=== PATIENT | male | born 1970 | race Caucasian/White ===

== ENCOUNTER 2017-07-27 08:23 | Day surgery (SDC) | payer OTHER, SELFPAY ==
[2017-07-27 08:47] VITALS: BP 152/85; PULSE 78; RESP 14; TEMP 35.5; O2SAT 98; BMI 31.1
[2017-07-27 10:20] VITALS: BP 111/72; BP 112/72; BP 152/85; PULSE 72; PULSE 75; RESP 16; RESP 18; TEMP 36.6; O2SAT 90; O2SAT 94
[2017-07-27 10:25] VITALS: BP 105/65; BP 152/85; PULSE 69; RESP 16; O2SAT 94
[2017-07-27 10:30] VITALS: BP 120/75; BP 152/85; PULSE 66; RESP 16; O2SAT 92
[2017-07-27 10:35] VITALS: BP 128/85; BP 152/85; PULSE 69; RESP 16; TEMP 37.1; O2SAT 97
[2017-07-27 10:52] VITALS: BP 152/85
--- NOTE | 2017-07-28 07:57 | PCM.OPRPT ---
Problem List (1) Blood in stool Status: Acute Report of Operation Date of Procedure: 07/27/17 Pre-Operative Diagnosis: Rectal bleeding Post-Operative Diagnosis: Normal colonoscopy Surgery/Procedure Performed:: Colonoscopy Specimen's removed: None Description of Procedure: The major risks and benefits associated with the procedure were explained to the patient in detail. The patient verbalized understanding and agreement with the same. The patient was brought to the endoscopy suite. After adequate sedation was achieved, the patient was placed in the left lateral decubitus position and a digital rectal exam was performed. This examination was within normal limits. A well-lubricated colonoscope was then inserted into the rectum and advanced under direct visualization to the level of the cecum. The bowel prep was good. The cecum was identified by both visual and anatomic landmarks. A photograph was taken of the end of the cecum. The scope was then fully withdrawn while examining the color, texture, anatomy and integrity of the mucosa from the cecum to the anal canal. The findings were consistent with normal colonic mucosa. Over 6 minutes were taken to examine the colonic mucosa. Upon reaching the rectum the scope was retroflexed to examine the distal rectal vault. The scope was then straightened and was completely retrieved upon exiting the anal canal and the procedure was terminated. The patient was then transferred to the recovery room in stable condition. Recommendations for follow up: 10 years
== END 2017-07-27 10:54 | disposition home or self-care (01) ==
LOC: EN 08:26 → AC 08:35
PROVIDERS: Family Provider Family Medicine; PCP Family Medicine; Visit Provider Surgery
PROC: 0DJD8ZZ Inspection of Lower Intestinal Tract, Via Natural or Artificial Opening Endoscopic (ICD-10-PCS; CPT 45378; principal; 2017-07-27 09:25)
DX: K92.1 Melena (principal); F32.9 Major depressive disorder, single episode, unspecified
CPT/HCPCS: 45378; J7120

== ENCOUNTER 2017-10-28 15:45 | Emergency (ER) | payer OTHER, SELFPAY ==
[2017-10-28 15:46] VITALS: BP 161/96; PULSE 87; RESP 14; TEMP 36.7; O2SAT 97; BMI 30.7
--- NOTE | 2017-10-28 16:01 | RAD_ITS ---
STUDY: X-RAY - RIGHT HAND REASON FOR EXAM: Male, 47 years old. Puncture wound TECHNIQUE: Three view(s) of the hand were obtained. COMPARISON: None. FINDINGS: Bones: There are no acute osseous abnormalities. Joints: The visualized joints are unremarkable. Soft tissues: The soft tissues are unremarkable. Foreign body: The radiopaque foreign body is present dorsally and shows minimal contact with the edge of the head of the third metacarpal. RAD/Hand Min 3 Views IMPRESSION: The carline likely contacts the edge of the head of the third metacarpal. Electronically Signed: Sabrina Senior MD at 16:47 EDT Tel Direct: [phone], Service support ,
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
[2017-10-28] MEDS: Diphth,Pertuss(Acell),Tet Vac 0.5 ML Vial IM (16:22)
[2017-10-28] MEDS: Cephalexin 250 MG Capsule 500 MG PO (16:22)
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
--- NOTE | 2017-10-28 16:22 | ED.DEP ---
ED Disposition - Plan for ED Patient: Chief Complaint: Foreign Body Instructions: ED Foreign Body Soft Tissue Removed Prescriptions: Cephalexin [Keflex] 500 mg PO Q6 #40 cap Referrals: Rosa M Saldana MD [Primary Care Provider] - [facility] - 3-5 Days
[2017-10-28 16:32] VITALS: PULSE 76
--- NOTE | 2017-10-28 16:33 | NURSING ---
WOUND WASHED WITH SOAP AND WATER. BACITRACIN AND BANDAID APPLIED. PT D/C TO [facility] FOR TESTING.
== END 2017-10-28 16:34 | disposition home or self-care (01) ==
LOC: ED 16:27
PROVIDERS: Emergency Provider Emergency Medicine; Family Provider Family Medicine; PCP Family Medicine
DX: S61.441A Puncture wound with foreign body of right hand, initial encounter (principal); W20.8XXA Other cause of strike by thrown, projected or falling object, initial encounter; Y93.89 Activity, other specified; Y92.9 Unspecified place or not applicable; Y99.0 Civilian activity done for income or pay
CPT/HCPCS: 73130; 90715; 99283

== ENCOUNTER → 2022-07-06 | Outpatient (CLI) | payer OTHER, SELFPAY ==
--- NOTE | 2022-07-05 07:45 | MRI_ITS ---
EXAM: MR RIGHT LOWER EXTREMITY WITHOUT INTRAVENOUS CONTRAST, ANKLE CLINICAL INDICATION: RIGHT ANKLE POSTERIOR TIBIAL TENDINITIS TECHNIQUE: Multiplanar and multisequence MR images of the right ankle without intravenous contrast. This report was created using [employer] report [employer] technology. COMPARISON: None. FINDINGS: LIGAMENTS: Medial and lateral ligament complexes are intact. High ankle ligaments are intact. Subtalar ligaments are unremarkable. TENDONS: Achilles, peroneus, flexor and extensor tendons are intact. Specifically, there is no tibial tendinosis or tear. MUSCLES: Unremarkable. Normal bulk and signal. FLUID: Small ankle joint effusion. SINUS TARSI: Unremarkable. Normal fat in the sinus tarsi. PLANTAR FASCIA: Unremarkable. Intact. CARTILAGE: Unremarkable. No osteochondral lesion. Articular cartilage intact. BONES/JOINTS: Marrow signal is normal with no acute fracture, bone contusion or osteonecrosis. There is a small, chronic avulsion fracture fragment inferior to the medial malleolus. Talar dome intact. OTHER SOFT TISSUES: No mass or cystic lesion. MRI/Lower Ext Joint Only (Routine) IMPRESSION: 1. Ankle joint effusion. 2. No evidence of tibial tendinosis or tear. 3. Remote avulsion fracture inferior to the medial malleolus. Electronically Signed: Sendy Armendariz MD at 23:37 EST Reading Location ID and State: [id number] / Tel , Service support ,
== END | disposition home or self-care (01) ==
PROVIDERS: PCP Family Medicine; Visit Provider Student in an Organized Health Care Education/Training Program
DX: M76.821 Posterior tibial tendinitis, right leg (principal); M25.571 Pain in right ankle and joints of right foot
CPT/HCPCS: 73721

== ENCOUNTER → 2022-12-07 | Outpatient (CLI) | payer OTHER, SELFPAY ==
--- NOTE | 2022-12-07 12:40 | RAD_ITS ---
EXAM: XR RIGHT TOES, 2 OR MORE VIEWS CLINICAL INDICATION: pain -- GREAT TOE TECHNIQUE: Frontal, lateral and oblique views of the toes of the right foot. COMPARISON: No relevant prior studies available. FINDINGS: BONES/JOINTS: Unremarkable. No acute fracture. No dislocation. SOFT TISSUES: There is soft tissue swelling of the great toe. There is a faint curvilinear bone density posterior to the junction of the terminal tuft with the distal shaft of the distal first phalanx on the lateral view which may be fracture fragment or callus or early cortical disruption. No soft tissue gas is present. Intact joints. RAD/Toe(s) Min 2 Views IMPRESSION: 1. Soft tissue swelling of the great toe. 2. Faint curvilinear bone density at the plantar surface of bone, only seen on the lateral view, at the junction of the distal phalanx shaft and terminal tuft of the first digit. Considerations include small avulsion fracture fragment versus elevated cortex or callus, correlate with any evidence of infection and with any history of recent trauma. Electronically Signed: Roxana Mccloud MD at 2:50 EDT ,
== END | disposition home or self-care (01) ==
LOC: MTRAD 12:36
PROVIDERS: PCP Family Medicine; Referring Provider Family Medicine; Visit Provider Family Medicine
DX: M79.674 Pain in right toe(s) (principal)
CPT/HCPCS: 73660

== ENCOUNTER → 2022-12-15 | Outpatient (CLI) | payer OTHER, SELFPAY ==
[2022-12-15 15:37] LABS: Anion Gap 7 (5-15); BUN 15 mg/dL (7-18); BUN/Creat Ratio 13.5 RATIO (10-20); Calcium,Total 9.3 mg/dL (8.5-10.1); Chloride 104 mmol/L (98-107); Creatinine, Serum 1.11 mg/dL (0.70-1.30); EST Glomerular Filtration Rate 74 mL/min (>60); Est Glom Filt Rate - Afr Amer 90 mL/min (>60); Glucose 171 mg/dL (74-106); Potassium 3.8 mmol/L (3.5-5.1); Sodium Level 137 mmol/L (136-145)
== END | disposition home or self-care (01) ==
LOC: MTLAB 13:51
PROVIDERS: PCP Family Medicine; Referring Provider Family Medicine; Visit Provider Family Medicine
DX: R05.9 Cough, unspecified (principal)
CPT/HCPCS: 36415; 80048

== ENCOUNTER → 2022-12-21 | Outpatient (CLI) | payer OTHER, SELFPAY ==
[2022-12-21 18:04] LABS: PSA,Total - Annual Screen 1.24 ng/mL (0.00-4.00)
== END | disposition home or self-care (01) ==
PROVIDERS: PCP Family Medicine; Referring Provider Family Medicine; Visit Provider Family Medicine
DX: Z00.00 Encounter for general adult medical examination without abnormal findings (principal)
CPT/HCPCS: 36415; 84153; G0103

== ENCOUNTER → 2022-12-30 | Outpatient (CLI) | payer OTHER, SELFPAY ==
--- NOTE | 2022-12-30 06:39 | CT_ITS ---
EXAM: CT ANGIOGRAPHY CHEST WITH INTRAVENOUS CONTRAST CLINICAL INDICATION: Cough, recent DVT TWO WEEKS AGO NOW ON BLOOD THINNERS TECHNIQUE: Helically acquired angiography images were obtained of the chest with intravenous contrast. This CT exam was performed using one or more of the following dose reduction techniques: automated exposure control, adjustment of the mA and/or kV according to patient size, and/or use of iterative reconstruction technique. MIP reconstructed images were created and reviewed. CONTRAST: IV 100mL [id number] COMPARISON: No relevant prior studies available. FINDINGS: PULMONARY ARTERIES: Unremarkable. Normal in caliber. No evidence of pulmonary embolism. AORTA: Unremarkable. Normal in caliber. No evidence of dissection. GREAT VESSELS OF AORTIC ARCH: Unremarkable. Normal in caliber. No evidence of dissection. LUNGS AND PLEURAL SPACES: Unremarkable. No mass. No consolidation or edema. No pleural effusion or thickening. No pneumothorax. HEART: Unremarkable. Heart size is normal. No pericardial effusion. MEDIASTINUM: Unremarkable. No mediastinal or hilar adenopathy. Esophagus is unremarkable. No hiatal hernia. THYROID: Unremarkable. No thyroid lesions. BONES/JOINTS: Mild degenerative changes of the thoracic spine. No suspicious lytic or blastic abnormality. KIDNEYS AND URETERS: Small simple cyst in the right kidney. No follow-up imaging is recommended per consensus recommendations based on imaging criteria. CT/Chest WITH Contrast IMPRESSION: No pulmonary embolism or other acute abnormality identified. Electronically Signed: Simeon Talbert MD at 7:15 EDT ,
== END | disposition home or self-care (01) ==
PROVIDERS: PCP Family Medicine; Referring Provider Family Medicine; Visit Provider Family Medicine
DX: R05.9 Cough, unspecified (principal)
CPT/HCPCS: 71260; Q9967

== ENCOUNTER → 2023-05-24 | Outpatient (CLI) | payer OTHER, SELFPAY ==
--- NOTE | 2023-05-24 13:01 | VDLE_ITS ---
Reason For Study: Rt Leg Pain, Hx of DVT RIGHT LEFT GSV is normal. CFV is compressible, spontaneous, phasic, CFV is compressible, spontaneous, phasic, competent, and demonstrates normal competent and demonstrates normal augmentation. augmentation. FV is compressible, spontaneous, phasic, competent and demonstrates normal augmentation. POP V is compressible, spontaneous, phasic, competent and demonstrates normal augmentation. T/P Trunk is compressible. Rt PTV is partially compressible with bright intraluminal echoes consistent with chronic DVT. RT PerV is compressible. Procedure This is a venous duplex using B-mode, color flow and spectral Doppler. Exam performed in department. A preliminary report was called and/or faxed to Dr. Saldana. VL/Venous Duplex US, Unilateral Interpretation Summary Chronic deep vein thrombosis is noted in the right posterior tibial vein The right great saphenous vein appears patent and compressible segmentally. Ordering Physician: Rosa M Saldana Referring Physician: Rosa M Saldana Performed By: Lina Barnhart, TARA, RVT
== END | disposition home or self-care (01) ==
LOC: CVS 13:01
PROVIDERS: PCP Family Medicine; Referring Provider Family Medicine; Visit Provider Family Medicine
DX: M79.604 Pain in right leg (principal); I82.409 Acute embolism and thrombosis of unspecified deep veins of unspecified lower extremity; Z86.718 Personal history of other venous thrombosis and embolism
CPT/HCPCS: 93971

== ENCOUNTER → 2023-12-27 | Outpatient (CLI) | payer OTHER, SELFPAY ==
[2023-12-27 15:46] LABS: Anion Gap 3 (5-15); BUN 15 mg/dL (7-18); BUN/Creat Ratio 15.2 RATIO (10-20); Calcium,Total 9.4 mg/dL (8.5-10.1); Chloride 108 mmol/L (98-107); Creatinine, Serum 0.99 mg/dL (0.70-1.30); EST Glomerular Filtration Rate 85 mL/min (>60); Est Glom Filt Rate - Afr Amer 102 mL/min (>60); Glucose 100 mg/dL (74-106); PSA,Total - Annual Screen 1.39 ng/mL (0.00-4.00); Potassium 4.2 mmol/L (3.5-5.1); Sodium Level 139 mmol/L (136-145); Thyroid Stim Hormone (TSH) 2.11 uIU/mL (0.358-3.74)
== END | disposition home or self-care (01) ==
LOC: MFPLAB 10:15
PROVIDERS: PCP Family Medicine; Visit Provider Family Medicine
DX: E66.9 Obesity, unspecified (principal); Z12.5 Encounter for screening for malignant neoplasm of prostate
CPT/HCPCS: 36415; 80048; 84153; 84443; G0103

== ENCOUNTER → 2024-12-28 | Outpatient (CLI) | payer OTHER, SELFPAY ==
[2024-12-28 12:38] LABS: Hematocrit 42.3 % (40-54); Hemoglobin 14.3 g/dL (13.0-16.5); Immature Granulocytes Count 0.010 X10^3/uL (0.0-0.0); Mean Corp Hgb Conc 33.8 g/dL (32-36); Mean Corpuscular Volume 90.6 fL (80-94); Mean Platelet Vol. 10.2 fl (6.2-12.0); NRBC Flagged by Analyzer 0 % (0-5); Platelet Count 232 K/mm3 (150-450); RBC Distribution Width CV 13.3 % (11.6-14.6); RBC Distribution Width SD 44.3 fl (35.1-43.9); Red Blood Count 4.67 M/mm3 (4.6-6.2); White Blood Count 4.6 K/mm3 (4.4-11.0)
[2024-12-28 13:10] LABS: AST(SGOT) 25 U/L (<=37); Alanine Aminotransfer ALT/SGPT 26 U/L (<=46); Albumin, Serum 4.3 g/dL (3.5-5.0); Alkaline Phosphatase 75 U/L (40-129); Anion Gap 11 (5-15); BUN 21 mg/dL (4-19); BUN/Creat Ratio 23.3 RATIO (10-20); Calcium,Total 9.6 mg/dL (7.6-11.0); Carbon Dioxide 25.7 mmol/L (21.0-32.0); Chloride 105 mmol/L (98-108); Cholesterol 173 mg/dL (<=200); Globulin 2.7 g/dL (2.2-4.2); Glucose 100 mg/dL (70-99); Low Density Lipoprotein Calc. 99 mg/dL; PSA,Total - Annual Screen 1.26 ng/mL (0.02-4.00); Potassium 4.5 mmol/L (3.3-5.1); Triglycerides 60 mg/dL; Very Low Density Lipoprotein 12 mg/dL (5-40); cholesterol:hdl ratio screen 2.77
--- OUTSIDE RECORDS SUMMARY | 2024-12-28 19:58 | XMS RPT_ITS | CCD ---
Author Organization [facility] CliniSyms Care Team Providers Care Legal Advisor Name Role Phone Destiney Tim Attending Unavailable PROVIDER, UNKNOWN Referring Unavailable Jolliff, Rosa M S Primary Care Unavailable Martine, Destiney Attending Unavailable PROVIDER, UNKNOWN Referring Unavailable Jolliff, Rosa M S Primary Care Unavailable Lynn Fritz Attending Unavailable PROVIDER, UNKNOWN Referring Unavailable Jolliff, Rosa M S Primary Care Unavailable Maritne, Destiney Attending Unavailable PROVIDER, UNKNOWN Referring Unavailable Jolliff, Rosa M S Primary Care Unavailable Martine, Destiney Attending Unavailable PROVIDER, UNKNOWN Referring Unavailable Jolliff, Rosa M S Primary Care Unavailable Martine, Destiney Attending Unavailable PROVIDER, UNKNOWN Referring Unavailable Jolliff, Rosa M S Primary Care Unavailable Martine, Destiney Attending Unavailable PROVIDER, UNKNOWN Referring Unavailable Jolliff, Rosa M S Primary Care Unavailable Martine, Destiney Attending Unavailable PROVIDER, UNKNOWN Referring Unavailable Jolliff, Rosa M S Primary Care Unavailable Leialliff, Rosa M Herbie Primary Care Provider [phone] Rosa M Ocasio Herbie Primary Care Provider Dr. Rosa M Ocasio Primary Care Provider Dr. Walter Bains Attending Provider Rosa M Ocasio Herbie Primary Care Provider Walter Bains Attending Unavailable Leialliff, Rosa M S Primary Care Unavailable Jolliff, Rosa M S Referring Unavailable Jolliff, Rosa M S Referring Unavailable Jolliff, Rosa M S Primary Care Unavailable Jolliff, Rosa M S Attending Unavailable Jolliff, Rosa M S Primary Care Unavailable Jolliff, Rosa M S Attending Unavailable Sukhwinderiff, Rosa M Herbie Primary Care Provider [phone] ROSA M OCASIO HERBIE Primary Care Unavailable Medications Current Medications Medication Drug Class(es) Dates Sig (Normalized) Sig (Original) [id number] 200 actuat albuterol 0.09 mg/actuat metered dose inhaler (5 sources) beta2-Adrenergic Agonist Start: 06-10-2024 take 2 puff(s) by inhalation every four hours as needed for wheezing albuterol HFA (VENTOLIN HFA) 90 mcg/actuation inhaler Inhale 2 Puffs as instructed every 4 hours as needed for wheezing/shortnes s of breath. 18 g 06/10/2024 Active Start: 06-13-2023 End: 06-10-2024 take 2 puff(s) by inhalation every four hours as needed for wheezing albuterol HFA (PROVENTIL HFA, VENTOLIN HFA) 90 mcg/actuation inhaler Inhale 2 Puffs as instructed every 4 hours as needed for wheezing/shortness of breath. 8 g 06/13/2023 06/10/2024 Discontinued (Course of therapy completed) Comment on above: Inhale 2 Puffs as in structed every 4 hours as needed for wheezing/shortness of breath. benzonatate 100 mg oral capsule (5 sources) Non-narcotic Antitussive Start: 025 take 2 capsules by mouth every eight hours as needed benzonatate (TESSALON PERLE) 100 mg capsule Take 2 capsules by mouth three times a day as needed. 30 capsule 06/10/2024 Active Start: 06-13-2023 End: 06-10-2024 take 1 capsule by mouth every eight hours as needed benzonatate (TESSALON PERLES) 100 mg capsule Take 1 capsule by mouth three times a day as needed for cough. 21 capsule 06/13/2023 06/10/2024 Discontinued (Course of therapy completed) Comment on above: Take 1 capsule by mo [facility] three times a day as needed for cough. cephalexin 500 mg oral capsule (6 sources) Cephalosporin Antibacterial Start: End: take 1 capsule by mouth three times daily cephALEXin (KEFLEX) 500 mg capsule Indications: Injury of left thumb, initial encounter Take 1 capsule by mouth three times daily for 5 days. 15 capsule 0 03/07/2022 03/12/2022 Active Start: 10-28-2017 take 500 mg by mouth every six hours Cephalexin Active 500 MG PO EVERY 6 HOURS October 27, 2017 11:00pm Comment on above: Take 1 capsule by mo [facility] three times daily for 5 days. FLUoxetine 20 mg oral capsule (13 sources) Serotonin Reuptake Inhibitor Start: 01-28-2022 FLUoxetine (PROZAC) 20 mg capsule 01/28/2022 Active Start: 07-19-2017 take 15 mg by mouth once daily Fluoxetine Active 15 MG PO daily July 19, 2017 12:00am Inhalational Spacing Device (1 source) Start: 06-13-2023 End: 06-13-2023 Inhalational Spacing Device 1 Device one time only for 1 dose. 1 Each 0 06/13/2023 06/13/2023 Active Comment on above: 1 Device one time on ly for 1 dose. nirmatrelvir tablet 300 mg (150 mg x 2) and ritonavir tablet 100 mg in a dose pack (PAXLOVID) (2 sources) Start: 06-11-2024 End: 06-16-2024 nirmatrelvir tablet 300 mg (150 mg x 2) and ritonavir tablet 100 mg in a dose pack (PAXLOVID) Indications: COVID-19 Administer TWO pink nirmatrelvir 150 mg tablets and ONE white ritonavir 100 mg tablet for a total of three tablets twice daily. 30 tablet 06/11/2024 06/16/2024 Active predniSONE 20 mg oral tablet (7 sources) Start: 06-10-2024 End: 06-15-2024 take 2 tablets by mouth once daily predniSONE (DELTASONE) 20 mg tablet Take 2 tablets by mouth once daily for 5 days. 10 tablet 06/10/2024 06/15/2024 Active Start: 11-30-2022 End: 12-12-2022 predniSONE (DELTASONE) 10 mg tablet Indications: Great toe pain, right Take 4 tabs daily x 3 days, then 3 tabs x 3 days, 2 tabs x 3 days, then 1 tab x3 days with food. 30 tablet 0 11/30/2022 12/12/2022 Active Start: 05-15-2011 End: 11-30-2022 take 1 tablet by mouth twice daily predniSONE 20 mg ORAL tablet Take 1 tablet by mouth twice daily. 14 tablet 0 05/15/2011 11/30/2022 Discontinued Comment on above: Take 1 tablet by [facility] twice daily. Take 4 tabs daily x 3 days, then 3 tabs x 3 days, 2 tabs x 3 days, then 1 tab x3 days with food. Completed/Discontinued Medications Medication Drug Class(es) Dates Sig (Normalized) Sig (Original) acetaminophen 325 mg / oxyCODONE hydrochloride 5 mg oral tablet (6 sources) Opioid Agonist Start: 05-14-2011 End: 06-10-2024 take 1-2 tablets by mouth every six hours as needed oxyCODONE-acetamin ophen 5-325 mg ORAL tablet Take 1-2 tablets by mouth every 6 hours as needed. 20 tablet 0 05/14/2011 06/10/2024 Discontinued (Course of therapy completed) Comment on above: Take 1-2 tablets by mouth every 6 hours as needed. ibuprofen 600 mg oral tablet (2 sources) Nonsteroidal Anti-inflammatory Drug Start: 05-12-2011 End: 11-30-2022 take 1 tablet by mouth every six hours as needed ibuprofen 600 mg ORAL tablet Take 1 tablet by mouth every 6 hours as needed. FOR PAIN. 30 tablet 0 05/12/2011 11/30/2022 Discontinued Comment on above: Take 1 tablet by rg th every 6 hours as needed. FOR PAIN. sertraline 50 mg oral tablet (6 sources) Serotonin Reuptake Inhibitor Start: 05-20-2011 End: 06-10-2024 take 1 tablet by mouth once daily sertraline (ZOLOFT) 50 mg tablet Take 1 tablet by mouth once daily. 0 05/20/2011 06/10/2024 Discontinued (Discontinued by Patient) Comment on above: Take 1 tablet by rg th once daily. zolpidem tartrate 10 mg oral tablet (6 sources) gamma-Aminobutyric Acid-ergic Agonist Start: 02-16-2022 End: 06-10-2024 take 10 mg by mouth every twenty-four hours as needed zolpidem (AMBIEN) 10 mg Take 10 mg by mouth at bedtime as needed. 02/16/2022 06/10/2024 Discontinued (Course of therapy completed) Comment on above: Take 10 mg by mouth at bedtime as needed. Problems Active Problems Problem Classification Problem Date Documented Da te Episodic/Chronic Asthma (2 sources) Unspecified asthma, uncomplicated; Translations: [Unspecified asthma, uncomplicated] Onset: 06-21-2018 Chronic Gastrointestinal hemorrhage (5 sources) Hematochezia; Translations: [Melena] 07-28-2017 Episodic Mood disorders (5 sources) Depressive disorder; Translations: [Depression] 07-28-2017 Chronic Mood disorders (2 sources) Major depressive disorder, single episode, unspecified; Translations: [Major depressive disorder, single episode, unspecified] Onset: 06-21-2018 Osteoarthritis (2 sources) Primary osteoarthritis, right hand; Translations: [Primary osteoarthritis, right hand] Onset: 05-03-2018 Chronic Other connective tissue disease (1 source) Pain in hallux; Translations: [Pain in right toe(s)] Episodic Other gastrointestinal disorders (5 sources) Diarrhea; Translations: [Diarrhea, unspecified] 07-28-2017 Episodic Other injuries and conditions due to external causes (1 source) Thumb injury ; Translations: [Unspecified injury of left wrist, hand and finger(s), initial encounter] Episodic Other nutritional; endocrine; and metabolic disorders (1 source) Obesity, unspecified; Translations: [Obesity, unspecified] Onset: 01-17-2024 Chronic Other upper respiratory infections (4 sources) Sore throat symptom; Translations: [Acute pharyngitis, unspecified] 06-13-2023 Episodic Superficial injury; contusion (3 sources) Superficial foreign body of right hand, initial encounter; Translations: [Subungual hematoma of finger of left hand] Onset: 05-03-2018 Episodic Viral infection (1 source) Disease caused by 2019-nCoV; Translations: [COVID-19] 06-11-2024 Episodic Past or Other Problems Problem Classification Problem Date Documented Da te Episodic/Chronic Open wounds of extremities (2 sources) Laceration of extensor muscle, fascia and tendon of right middle finger at wrist and hand level, initial encounter; Translations: [Lacerat extn musc/fasc/tend r mid finger at wrs/hnd lv, init] Onset: 01-25-2018 Episodic Other connective tissue disease (2 sources) Disorder of ligament, right hand; Translations: [Disorder of ligament, right hand] Onset: 05-03-2018 Episodic Other connective tissue disease (1 source) Pain in right leg; Translations: [Pain in right leg] Onset: 05-27-2023 Episodic Sprains and strains (2 sources) Strain of extensor muscle, fascia and tendon of right middle finger at wrist and hand level, initial encounter; Translations: [Strain extn musc/fasc/tend r mid finger at wrs/hnd lv, init] Onset: 06-21-2018 Episodic Results Test Name Value Interpretation [facility] Tele[facility] (UCWSTR) ANABEL BLANCAS ([id number]) 1970 M Date Time Provider Department 06/11/24 BECKY VICTOR [facility] During your visit today, we recorded the following information about you: Becky Victor APRN.CNP 06/11/2024 8:14 AM Signed I attempted to reach patient to advise of positive COVID test result. No answer, left message. If patient returns call, May be advised of positive test result and The CDC recommends that people refrain from work and isolate themselves until the following criteria are met: At least 24 hours have passed since last fever without the use of fever-reducing medications Other symptoms have improved If he is interested in treatment with Paxlovid this can be sent to his pharmacy. EMMA Faria Melissa, MA 06/11/2024 9:50 AM Signed COURTNEY took phone call and patient requesting paxlovid, COURTNEY closed phone encounter before routing message to [facility]. BAMBI Apodaca Kathy, APRN.CNP 06/11/2024 9:52 AM Signed Patient identified by name and date of . Paxlovid sent to pharmacy. Last eGFR was 90 (12/13/2022)- patient states no new health concerns or kidney function issues since then. Becky Victor APRN.CNP Allergies As of Date: 06/11/2024 (No Known Allergies) Date Reviewed: 06/11/2024 Reviewed by: Barbara Moreira RN - Fully Assessed Reason for Visit: Results [95] Prescriptions as of 06/11/2024 - nirmatrelvir tablet 300 mg (150 mg x 2) and ritonavir tablet 100 mg in a dose pack (PAXLOVID) Administer TWO pink nirmatrelvir 150 mg tablets and ONE white ritonavir 100 mg tablet for a total of three tablets twice daily. - predniSONE (DELTASONE) 20 mg tablet Take 2 tablets by mouth once daily for 5 days. - albuterol HFA (VENTOLIN HFA) 90 mcg/actuation inhaler Inhale 2 Puffs as instructed every 4 hours as needed for wheezing/shortness of breath. - benzonatate (TESSALON PERLE) 100 mg capsule Take 2 capsules by mouth three times a day as needed. - FLUoxetine (PROZAC) 20 mg capsule Problem List As Of Date: 06/11/2024 (None) Encounter Status:Closed by BECKY VICTOR on 06/11/24 [facility] NESSOVon 06-10-2024 CN Office Visit (UCTR ) MAGALISANABEL Denisse ([id number]) 1970 M Date Time Provider Department 06/10/24 10:45 AM FIONA LOMAS [facility] During your visit today, we recorded the following information about you: Temperature Pulse Respiration Blood pressure 99 degrees 97/minute 16/minute 122/82 Weight 103.4 kg Fiona Lomas APRN.SANITARY PLUMBER 06/10/2024 11:16 AM Signed Subjective The history is provided by the patient. No project associate was used. HPI Anabel Blancas is a 54 year old male who presents today for CC of cough, congestion, sinus pressure, for one day. He is also having sore throat, and body aches He has used no medications or treatment. No known exposure to covid, flu or rsv. Desires testing BP 122/82 Pulse 97 Temp 37.2 ?C (99 ?F) (Tympanic) Resp 16 Wt 103.4 kg (227 lb 15.3 oz) SpO2 95% Social History Tobacco Use Smoking status: Never Smokeless tobacco: Never Substance Use Topics Alcohol use: No Drug use: No History reviewed. No pertinent past medical history. I have confirmed and edited as necessary, the [facility] Review of Systems Constitutional: Negative for chills, fever and malaise/fatigue. HENT: Positive for congestion and sinus pain. Negative for ear pain and sore throat. Respiratory: Positive for cough. Negative for sputum production, shortness of breath and wheezing. Cardiovascular: Negative for chest pain. Gastrointestinal: Negative for abdominal pain, diarrhea, nausea and vomiting. Musculoskeletal: Negative for myalgias. Neurological: Negative for headaches. Objective Physical Exam Vitals and nursing note reviewed. Constitutional: Appearance: He is not toxic-appearing. HENT: Head: Normocephalic and atraumatic. Right Ear: Tympanic membrane, ear canal and external ear normal. Left Ear: Tympanic membrane, ear canal and external ear normal. Nose: Mucosal edema, congestion and rhinorrhea present. Right Sinus: Maxillary sinus tenderness and frontal sinus tenderness present. Left Sinus: Maxillary sinus tenderness and frontal sinus tenderness present. Mouth/Throat: Pharynx: Uvula midline. Posterior oropharyngeal erythema and postnasal drip present. No oropharyngeal exudate. Tonsils: No tonsillar abscesses. Cardiovascular: Rate and Rhythm: Normal rate and regular rhythm. Heart sounds: Normal heart sounds. Pulmonary: Effort: Pulmonary effort is normal. Breath sounds: Normal breath sounds. No decreased breath sounds, wheezing, rhonchi or rales. Lymphadenopathy: Head: Right side of head: No submental, submandibular, tonsillar or preauricular adenopathy. Left side of head: No submental, submandibular, tonsillar or preauricular adenopathy. Cervical: No cervical adenopathy. Right cervical: No superficial cervical adenopathy. Left cervical: No superficial cervical adenopathy. Neurological: Mental Status: He is alert. ASSESSMENT/PLAN: 1. Sore throat - ICD9: 462, ICD10: J02.9 (primary diagnosis) - suspect viral - Group A strep molecular testing negative - STREP A MOLECULAR (POC) 2. URI with cough and congestion - ICD9: 465.9, ICD10: J06.9 - Discussed viral etiology and rationale for treatment. - Symptomatic treatment with prn analgesia - Supportive care with fluids and rest - The patient may also use mucinex, tessalon perls, albuterol inhaler Prednisone 40 mg (2-20mg tablets) po QD for 5 days. - - COVID AND INFLUENZA A/B AND RSV PCR, ROUTINE Diagnosis and treatment plan were discussed and questions were answered to the patient's satisfaction. Pt acknowledged understanding of concepts and follow up plan. Specific signs and symptoms that would indicate the need for higher level of care were discussed in detail warranting prompt ER evaluation. Fiona Lomas APRN.Fiona Blake APRN.CNP 06/10/2024 11:16 AM Addendum Strep is negative covid flu and influenza test ordered You will be notified in 12-24 hours, results available on MyChart Rest, increase water intake Motrin or Tylenol as needed for fever or pain. Salt water gargles, chloraseptic spray or lozenges as needed for sore throat. Warm beverages, honey. Nasal saline spray as needed Cool mist humidifier at night Tylenol (generic acetaminophen) 500 mg-2 tabs every 8 hrs. as needed for fever and aches Ibuprofen 600 mg (3-200mg tablets) every 6 hours -Mucinex (generic is fine) Guaifenesin 1200 mg twice daily to help with cough and to thin out mucus Albuterol inhaler - 2 puffs every 4-6 hours Tessalon Perles 2 every 8 hours, do not combine this with robitussin or delsym * Prednisone 40 mg (2 tablets) per day for 5 days, take in morning or early in day * Do not NSAIDs during this 5 day course (ibuprofen, naproxen, Motrin, Aleve, Advil) Tylenol only during prednisone use * Follow up with primary care provider if no improvement with treatment * Seek medical care immediate (more content not included)... Normal [facility] COVID AND INFLUENZA A/B AND RSV PCR, ROUTINEon 06-10-2024 SARS-CoV-2 (COVID-19) RNA HECTOR+probe Ql (Unsp spec) SARS-COV-2 (AGENT OF COVID-19) RNA: Detected INFLUENZA A RNA: Not detected INFLUENZA B RNA: Not detected RESPIRATORY SYNCYTIAL VIRUS (RSV) RNA: Not detected Abnormal [facility] Comment on above: Performed By: #### C VFLRS #### [facility] CLIA [id number] [place] [address] [place] STREP A MOLECULAR (POC)on Procedural Control Valid [facility] Strep A (POCT) Negative Negative [facility] Basic Metabolic Profile (BMP )on 12-27-2023 BUN/CRE 15.2 RATIO Normal 10-20 [facility] Comment on above: Performed By: #### L 501.9910, L500.2500, L501.9520 #### [facility] [address] [place], [address] CA,Total 9.4 mg/dL Normal 8.5-10.1 [facility] Comment on above: Performed By: #### L 501.9910, L500.2500, L501.9520 #### [facility] [address] [place], [address] Chloride [Moles/Vol] 108 mmol/L High 98-107 [facility] Comment on above: Performed By: #### L 501.9910, L500.2500, [id number] #### [facility] [address] [place], [address] CO2 [Moles/Vol] 28.0 mmol/L Normal 21.0-32.0 [facility] Comment on above: Performed By: #### L 501.9910, L500.2500, L501.9520 #### [facility] [address] [place], [address] Creatinine [Mass/Vol] 0.99 mg/dL Normal 0.70-1.30 [facility] Comment on above: Result Comment: The validity of the calculated GFR GFRAA in patients over 70 years has not been determined. Clinical correlation is essential. Performed By: #### L 501.9910, L500.2500, L501.9520 #### [facility] [address] [place], [address] EST GFR - AA 102 mL/min Normal >60 [facility] Comment on above: Result Comment: Afri can Gren[place] GFR Calc Performed By: #### L [id number], L500.2500, [id number] #### [facility] [address] [place], [address] GAP 3 Low 5-15 [facility] Comment on above: Performed By: #### L 501.9910, L500.2500, [id number] #### [facility] [address] [place], [address] GFR/1.73 sq M.predicted among non-blacks MDRD (S/P/Bld) [Vol rate/Area] 85 mL/min/{1.73_m2} Normal >60 [facility] Comment on above: Result Comment: Non- GFR Calc Performed By: #### L 501.9910, L500.2500, L501.9520 #### [facility] [address] [place], [address] Glucose [Mass/Vol] 100 mg/dL Normal 74-106 [facility] Comment on above: Result Comment: Fast ing Glucose result from 100 to 125 mg/dL suggests IMPAIRED HOMEOSTASIS per A.D.A. criteria. Performed By: #### L 501.9910, L500.2500, L501.9520 #### [facility] [address] [place], [address] Potassium [Moles/Vol] 4.2 mmol/L Normal 3.5-5.1 [facility] Comment on above: Performed By: #### L 501.9910, L500.2500, L501.9520 #### [facility] [address] [place], [address] Sodium [Moles/Vol] 139 mmol/L Normal 136-145 [facility] Comment on above: Performed By: #### L 501.9910, L500.2500, [id number] #### [facility] [address] [place], [address] Urea nitrogen [Mass/Vol] 15 mg/dL Normal - [facility] Comment on above: Performed By: #### L 501.9910, L500.2500, L501.9520 #### [facility] [address] [place], [address] PSA,Total - Annual Screenon 12-27-2023 PSA,TOT SCREEN 1.39 ng/mL Normal 0.00-4.00 [facility] Comment on above: Result Comment: This test was performed using the TPSA assay method for the [employer] chemistry system. Values obtained with different assay methods cannot be used interchangably. When changing PSA assays in the course of monitoring a patient, additional sequential testing should be carried out to confirm baseline values. Performed By: #### L 501.9910, L500.2500, L501.9520 #### [facility] [address] [place], [address] Thyroid Stim Hormone (TSH)on 12-27-2023 TSH 2.11 uIU/mL Normal 0.358-3.74 [facility] Comment on above: Performed By: #### L 501.9910, L500.2500, L501.9520 #### [facility] [address] [place], [address] STREP A MOLECULAR (POC)on Procedural Control Valid [facility] Strep A (POCT) Negative Negative [facility] Venous Duplex US, Unilateral on 05-24-2023 Venous Duplex US, Unilateral [facility] [address] [place] [place] [address] Venous Duplex US, Unilateral 05/24/23 1310 MR#: [id number] Acct: [id number] Name: ANABEL BLANCAS Rep #: [id number] : 1970 53 From: Walter Bains MD Attending Dr: Dr. Rosa M Ocasio MD Status: REG CLI Ordering Dr: Rosa M Ocasio MD Date: 05/24/23 Location: [facility] Sex: M C Admitted: Reason For Study: Rt Leg Pain, Hx of DVT RIGHT LEFT GSV is normal. CFV is compressible, spontaneous, phasic, CFV is compressible, spontaneous, phasic, competent, and demonstrates normal competent and demonstrates normal augmentation. augmentation. FV is compressible, spontaneous, phasic, competent and demonstrates normal augmentation. POP V is compressible, spontaneous, phasic, competent and demonstrates normal augmentation. T/P Trunk is compressible. Rt PTV is partially compressible with bright intraluminal echoes consistent with chronic DVT. RT PerV is compressible. Procedure This is a venous duplex using B-mode, color flow and spectral Doppler. Exam performed in department. A preliminary report was called and/or faxed to Dr. Ocasio. VL/Venous Duplex US, Unilateral Interpretation Summary Chronic deep vein thrombosis is noted in the right posterior tibial vein The right great saphenous vein appears patent and compressible segmentally. Ordering Physician: Rosa M Ocasio Referring Physician: Rosa M Ocasio Performed By: Lina Barnhart, TARA, RVT 05/25/23 0806 Date Walter Bains MD CC: Dr. Rosa M Ocasio MD Date Dictated: 05/24/23 1310 Date Transcribed: 05/25/23 0807 Repair Supervisor: Signed Normal [facility] No Panel InformationOrdered By: Rosa M Ocasio on 12-21-2022 Prostate Specific Antigen Screen 1.24 ng/mL 0.00-4.00 [facility] Comment on above: This test was perfor med using the TPSA assay method for the[employer] chemistry system. Values obtained with differentassay methods cannot be used interchangably.When changing PSA assays in the course of monitoring apatient, additional sequential testing should be carriedout to confirm baseline values. Basophil percentageOrdered B y: Mallory Erickson on 12-15-2022 Chloride [Moles/Vol] 104 mmol/L 98-107 [facility] Glucose [Mass/Vol] 171 mg/dL 74-106 [facility] Comment on above: Fasting Glucose resu lt greater than or equal to 126 mg/dL suggests DIABETES MELLITUS per A.D.A. criteria. Potassium [Moles/Vol] 3.8 mmol/L 3.5-5.1 [facility] Sodium [Moles/Vol] 137 mmol/L 136-145 [facility] Laboratory - Chemistry and C hemistry - challengeOrdered By: Mallory Erickson on 12-15-2022 CO2 [Moles/Vol] 26.0 mmol/L 21.0-32.0 [facility] Urea nitrogen/Creatinine [Mass ratio] 13.5 mg/mg 10-20 [facility] No Panel InformationOrdered By: Mallory Erickson on 12-15-2022 Estimated GFR (MDRD) Amer 90 mL/min >60 [facility] Comment on above: GFR Calc Estimated GFR (MDRD) Non-Af Amer 74 mL/min >60 [facility] Comment on above: Non- GFR Calc Serum or plasma calcium michael urement (mass/volume)Ordered By: Mallory Erickson on 12-15-2022 Calcium [Mass/Vol] 9.3 mg/dL 8.5-10.1 [facility] Serum or plasma creatinine m easurement (mass/volume)Ordered By: Mallory Erickson on 12-15-2022 Creatinine [Mass/Vol] 1.11 mg/dL 0.70-1.30 [facility] Comment on above: The validity of the calculated GFR & GFRAA in patients over 70 years has not been determined. Clinical correlation is essential. Serum or plasma urea nitroge n measurement (mass/volume)Ordered By: Mallory Erickson on 12-15-2022 Urea nitrogen [Mass/Vol] 15 mg/dL 7-18 [facility] Thin prep Papanicolaou smear with manual screeningOrdered By: Mallory Erickson on 12-15-2022 Thin prep Papanicolaou smear with manual screening 7 5-15 [facility] XR TOE AP/LAT/OBL RIGHTon [facility] XR Toes - right 3 Viewson IMPRESSION: No radiographic evidence of acute osseous abnormality Repair Supervisor: [facility] Transcribe Date/Time: Nov 30 2022 3:49P Dictated by : CHARLIE LOUISE MD This examination was interpreted and the report reviewed and electronically signed by: CHARLIE LOUISE MD on Nov 30 2022 3:50PM EST DIVISION OF RADIOLOGY * * *Final Report* * * DATE OF EXAM: Nov 30 2022 3:44PM WOX [id number] - XR TOE 3V AP/LAT/OBL RT / PROCEDURE REASON: Great toe pain, right * * * * Physician Interpretation * * * * TITLE: XR TOE 3V AP/LAT/OBL RT CLINICAL INDICATION: Great toe pain TECHNIQUE: 3 view radiographic study of the right great toe COMPARISON: None FINDINGS: No acute fracture or dislocation identified. No destructive osseous lesion. Joint spaces preserved. No radiopaque foreign body. DIVISION OF RADIOLOGY Provider, [facility] - 11/30/2022 * * *Final Report* * * DATE OF EXAM: Nov 30 2022 3:44PM WOX [id number] - XR TOE 3V AP/LAT/OBL RT / PROCEDURE REASON: Great toe pain, right * * * * Physician Interpretation * * * * TITLE: XR TOE 3V AP/LAT/OBL RT CLINICAL INDICATION: Great toe pain TECHNIQUE: 3 view radiographic study of the right great toe COMPARISON: None FINDINGS: No acute fracture or dislocation identified. No destructive osseous lesion. Joint spaces preserved. No radiopaque foreign body. IMPRESSION IMPRESSION: No radiographic evidence of acute osseous abnormality Repair [facility] Transcribe Date/Time: Nov 30 2022 3:49P Dictated by : CHARLIE LOUISE MD This examination was interpreted and the report reviewed and electronically signed by: CHARLIE LOUISE MD on Nov 30 2022 3:50PM EST [facility] Radiology Study observation (narrative) [facility] XR Toes - right 3 ViewsOrder ed By: Ccf Provider on 11-30-2022 [facility] MRI Low Ext Non Jt w/o Contr dennis 05-03-2018 MRI Low Ext Non Jt w/o Contrast Patient Name: ANABEL BLANCAS MRI Exam Date/Time 05/03/2018 09:08:53 EST Exam MRI Low Ext Non Jt w/o Contrast Ordering Physician MD MARTINE, DESTINEY Manzano Accession Number [id number] CPT4 Codes 76506 () Reason For Exam superficial foreign body of right hand Addendum This exam in the patient's exam history was incorrectly coded to this order. The billing and report corrections were made on accession number [id number] Final Addendum Signed Date and Time: 08/26/2018 8:55 pm Signed by: DATABASE CONSULTANT, SYSTEM Transcribed Date and Time: 08/26/2018 8:53 Transcribed By:EG Report Examination: MRI right hand Clinical Indication: Superficial foreign body, swelling, pain and decreased range of motion Comparison: None Findings: Multiplanar multisequence high field strength MRI images were obtained through the right hand without intravenous gadolinium. Additional short axis STIR and T2-weighted images were obtained through the hand with a clenched fist. There is susceptibility artifact seen along the dorsum of the hand between the heads of the third and fourth digit metacarpals. Finding may represent a small foreign body or could be related to previous surgery. There is thickening of the joint capsule along the dorsal and ulnar aspect third metacarpal phalangeal joints likely related to previous surgery or trauma. There is significant laxity along the sagittal band. The extensor tendon is subluxed in the radial direction with persistent worsening subluxation with a clenched fist view. 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 The tendon is grossly intact with no significant tendinopathy. There is a small osteophyte seen along the third metacarpal head along the dorsal and ulnar aspect series 7 image 19. Remainder of the ligaments and tendons are normal in appearance. There is no joint effusion. Small osteophyte seen along the first metacarpal head. Small subchondral cysts along the third metacarpal head, radial aspect. Impression: 1. Small focus of susceptibility artifact seen along the dorsum of the hand between the heads of the third and fourth digits. Findings may represent a small foreign body or the sequelae of previous surgery. 2. Thickening of the ulnar aspect of the metacarpal phalangeal joint capsule, ulnar aspect with laxity of the sagittal band. Finding likely represents remote/chronic tear and insufficiency. The extensor tendon is subluxed radially with worsening subluxation with clenched fist. 3. 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 Report Dictated on Report revised on 08/26/2018 20:55:04 EDT by DATABASE CONSULTANT, SYSTEM Final Dictating Physician: MD WESTON ANTHONY J Signed Date and Time: 05/03/2018 2:48 pm Signed by: MD WESTON ANTHONY J Transcribed Date and Time: 05/03/2018 2:50 Normal [facility] MRI Up Ext Non Jt w/o Contra ston 05-03-2018 MRI Up Ext Non Jt w/o Contrast Patient Name: ANABEL BLANCAS MRI Exam Date/Time 05/03/2018 09:08:00 EST Exam MRI Up Ext Non Jt w/o Contrast Ordering Physician MD MARTINE, DESTINEY Manzano Accession Number [id number] CPT4 Codes 51340 () Reason For Exam superficial foreign body of right hand Report Examination: MRI right hand Clinical Indication: Superficial foreign body, swelling, pain and decreased range of motion Comparison: None Findings: Multiplanar multisequence high field strength MRI images were obtained through the right hand without intravenous gadolinium. Additional short axis STIR and T2-weighted images were obtained through the hand with a clenched fist. There is susceptibility artifact seen along the dorsum of the hand between the heads of the third and fourth digit metacarpals. Finding may represent a small foreign body or could be related to previous surgery. There is thickening of the joint capsule along the dorsal and ulnar aspect third metacarpal phalangeal joints likely related to previous surgery or trauma. There is significant laxity along the sagittal band. The extensor tendon is subluxed in the radial direction with persistent worsening subluxation with a clenched fist view. 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 The tendon is grossly intact with no significant tendinopathy. There is a small osteophyte seen along the third metacarpal head along the dorsal and ulnar aspect series 7 image 19. Remainder of the ligaments and tendons are normal in appearance. There is no joint effusion. Small osteophyte seen along the first metacarpal head. Small subchondral cysts along the third metacarpal head, radial aspect. Impression: 1. Small focus of susceptibility artifact seen along the dorsum of the hand between the heads of the third and fourth digits. Findings may represent a small foreign body or the sequelae of previous surgery. 2. Thickening of the ulnar aspect of the metacarpal phalangeal joint capsule, ulnar aspect with laxity of the sagittal band. Finding likely represents remote/chronic tear and insufficiency. The extensor tendon is subluxed radially with worsening subluxation with clenched fist. 3. 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 Report Dictated on Final Dictating Physician: MD WESTON ANTHONY J Signed Date and Time: 05/03/2018 2:48 pm Signed by: MD WESTON ANTHONY J Transcribed Date and Time: 08/26/2018 8:[address] [facility] Vital Signs Date Time Vital Sign Value Performing Clinician Cipriano tripp 06-10-2024 10:42-0500 Body temperature 99 [degF] Fiona Lomas APRN.SANITARY PLUMBER Work Phone: [facility] 06-10-2024 10:42-0500 Body weight 103.4 kg Fiona Lomas APRN.SANITARY PLUMBER Work Phone: [facility] 06-10-2024 10:42-0500 Diastolic blood pressure 82 mm[Hg] Fiona Lomas APRN.SANITARY PLUMBER Work Phone: [facility] 06-10-2024 10:42-0500 Heart rate 97 /min Fiona Lomas APRN.SANITARY PLUMBER Work Phone: [facility] 06-10-2024 10:42-0500 Respiratory rate 16 /min Fiona Lomas APRN.SANITARY PLUMBER Work Phone: [facility] 06-10-2024 10:42-0500 SaO2% (BldA) [Mass fraction] 95 % Fiona Lomas TEACHER COUNSELOR.SANITARY PLUMBER Work Phone: [facility] 06-10-2024 10:42-0500 Systolic blood pressure 122 mm[Hg] Fiona Lomas TEACHER COUNSELOR.SANITARY PLUMBER Work Phone: [facility] 06-13-2023 11:51-0500 Body temperature 97.2 [degF] Yaneli Korduba PA-C Work Phone: [facility] 06-13-2023 11:51-0500 Body weight 102.97 kg Yaneli Korduba PA-C Work Phone: [facility] 06-13-2023 11:51-0500 Diastolic blood pressure 84 mm[Hg] Yaneli Korduba PA-C Work Phone: [facility] 06-13-2023 11:51-0500 Heart rate 72 /min Yaneli Korduba PA-C Work Phone: [facility] 06-13-2023 11:51-0500 Respiratory rate 18 /min Yaneli Korduba PA-C Work Phone: [facility] 06-13-2023 11:51-0500 SaO2% (BldA) [Mass fraction] 98 % Yaneli Korduba PA-C Work Phone: [facility] 06-13-2023 11:51-0500 Systolic blood pressure 123 mm[Hg] Yaneli Korduba PA-C Work Phone: [facility] 11-30-2022 15:11-0400 Body temperature 97.11 [degF] Klaus Talley TEACHER COUNSELOR.SANITARY PLUMBER Work Phone: [facility] 11-30-2022 15:11-0400 Body weight 103.06 kg Klaus Talley TEACHER COUNSELOR.SANITARY PLUMBER Work Phone: [facility] 11-30-2022 15:11-0400 Diastolic blood pressure 86 mm[Hg] Klaus Talley TEACHER COUNSELOR.SANITARY PLUMBER Work Phone: [facility] 11-30-2022 15:11-0400 Heart rate 70 /min Klaus Mayank TEACHER COUNSELOR.SANITARY PLUMBER Work Phone: [facility] 11-30-2022 15:11-0400 Respiratory rate 18 /min Klaus Mayank TEACHER COUNSELOR.SANITARY PLUMBER Work Phone: [facility] 11-30-2022 15:11-0400 SaO2% (BldA) [Mass fraction] 98 % Klaus Mayank TEACHER COUNSELOR.SANITARY PLUMBER Work Phone: [facility] 11-30-2022 15:11-0400 Systolic blood pressure 130 mm[Hg] Klaus Mayank TEACHER COUNSELOR.SANITARY PLUMBER Work Phone: [facility] 03-07-2022 14:15-0400 Body temperature 96.91 [degF] Becky Praisler-Wood TEACHER COUNSELOR.SANITARY PLUMBER Work Phone: [facility] 03-07-2022 14:15-0400 Body weight 94.98 kg Becky Praisler-Wood TEACHER COUNSELOR.SANITARY PLUMBER Work Phone: [facility] 03-07-2022 14:15-0400 Diastolic blood pressure 80 mm[Hg] Becky Praisler-Wood TEACHER COUNSELOR.SANITARY PLUMBER Work Phone: [facility] 03-07-2022 14:15-0400 Heart rate 81 /min Becky Praisler-Wood TEACHER COUNSELOR.SANITARY PLUMBER Work Phone: [facility] 03-07-2022 14:15-0400 Respiratory rate 18 /min Becky Praisler-Wood TEACHER COUNSELOR.SANITARY PLUMBER Work Phone: [facility] 03-07-2022 14:15-0400 SaO2% (BldA) [Mass fraction] 98 % Becky Praisler-Wood TEACHER COUNSELOR.SANITARY PLUMBER Work Phone: [facility] 03-07-2022 14:15-0400 Systolic blood pressure 130 mm[Hg] Becky Praisler-Wood TEACHER COUNSELOR.SANITARY PLUMBER Work Phone: [facility] Encounters Encounter Date Encounter Type Care Provider Facility Start: 06-11-2024 End: 06-11-2024 ambulatory Barbara Moreira RN NURSE [employer] Start: 06-11-2024 End: 06-11-2024 Patient encounter procedure Barbara Moreira RN NURSE [employer] Comment on above: Clinical Update Start: 06-11-2024 End: 06-11-2024 Telephone encounter Becky MandujanoJesusita VYASSANITARY PLUMBER Work Phone: [facility] Comment on above: Results Start: 06-10-2024 End: 06-10-2024 ambulatory ROSA M OCASIO Facility:[facility] Start: 06-10-2024 End: 06-10-2024 Patient encounter procedure Fiona Lomas АННА.SANITARY PLUMBER Work Phone: [facility] Comment on above: Sore throat (Primary Dx); URI with cough and congestion Start: 12-27-2023 End: 12-27-2023 ambulatory Rosa M Ocasio Facility:[facility] Start: 06-13-2023 End: 06-13-2023 Patient encounter procedure Yaneli Wolfe PA-C Work Phone: [facility] [facility] Comment on above: Sore throat (Primary Dx); URI with cough and congestion Start: 05-24-2023 Non-patient / Non-visit Dr. Rosa M Ocasio Work Phone: [facility] Start: 05-24-2023 End: 05-24-[address] Rosa M Ocasio Work Phone: [facility] Work Phone: Start: 05-24-2023 End: 05-24-[address] Rosa M Ocasio Work Phone: [facility]Cardi[facility] Work Phone: Start: 05-24-2023 End: 05-24-2023 ambulatory Rosa M Ocasio Facility:[facility] Start: 12-30-2022 End: 12-30-2022 ambulatory [facility] Work Phone: Start: 12-30-2022 End: 12-30-2022 Patient encounter procedure [facility]-Cat Scan, [facility] Work Phone: Start: 12-21-2022 End: 12-21-2022 Patient encounter procedure [facility], [place] Work Phone: Start: 12-15-2022 End: 12-15-2022 ambulatory [facility] Work Phone: Start: 12-15-2022 End: 12-15-2022 Patient encounter procedure [facility] [place] Work Phone: Start: 12-07-2022 End: 12-07-2022 ambulatory [facility] Work Phone: Start: 12-07-2022 End: 12-07-2022 Patient encounter procedure [facility]Radiology, [place] Work Phone: Start: 12-01-2022 Telephone encounter Klaus novak APRN.SANITARY PLUMBER Work Phone: [place] [employer] [facility] Comment on above: Results Start: 11-30-2022 End: 11-30-2022 Subsequent hospital visit by physician [facility] Work Phone: Radiology Comment on above: Great toe pain, righ t [M79.674] Start: 11-30-2022 End: 11-30-2022 Patient encounter procedure Klaus Talley APRN.SANITARY PLUMBER Work Phone: [facility] Comment on above: Great toe pain, righ t (Primary Dx) Start: 07-06-2022 End: 07-06-2022 ambulatory [facility] Work Phone: Start: 07-06-2022 End: 07-06-2022 Patient encounter procedure [facility]MRI - [facility] Start: 03-07-2022 End: 03-07-2022 Patient encounter procedure Becky Victor APRN.SANITARY PLUMBER Work Phone: [facility] Comment on above: Injury of left thumb , initial encounter (Primary Dx); Subungual hematoma of finger of left hand, initial encounter Start: 10-04-2018 Patient encounter procedure Destiney Tim [facility] Start: 06-21-2018 Patient encounter procedure Destiney Tim [facility] Start: 06-06-2018 Patient encounter procedure Lynn Fritz [facility] Start: 05-24-2018 Patient encounter procedure Destiney Tim [facility] Start: 05-03-2018 Patient encounter procedure Destiney Tim [facility] Start: 03-10-2018 Patient encounter procedure Destiney Tim [facility] Start: 01-25-2018 Patient encounter procedure Destiney Tim [facility] Start: 01-13-2018 Patient encounter procedure Destiney Tim [facility] Procedures Date Procedure Procedure Detail Performing Clinician Start: 06-10-2024 STREP A MOLECULAR (POC) Fiona Lomas APRN.CNP Work Phone: Start: 06-13-2023 STREP A MOLECULAR (POC) Yaneli Wolfe PA-C Work Phone: Start: 12-30-2022 CT of thorax with contrast Start: 12-07-2022 Plain X-ray of toe Start: 11-30-2022 Radex toe minimum 2 views Klaus Talley APRN.CNP Work Phone: Start: 07-05-2022 MRI of joint of lowe r extremity History of laser ass isted in situ keratomileusis S/P LASIK surgery Plan of Treatment Date Care Activity Detail Author Start: 10-29-2027 Urine microalbumin profile DTaP,Tdap,Td Vaccine (2 - Td or Tdap) [facility] Start: 12-13-2025 Diabetes Screening Diabetes Screenin g [facility] Start: 02-06-2024 Covid-19 Vaccine ( season) Covid-19 Vaccine ( season) [facility] Start: 02-06-2024 Influenza vaccination Influenza Vacc ine (#1) [facility] Start: 06-07-2023 Depression Assessment Depression Ass essment [facility] Start: 11-30-2022 End: 01-30-2023 Urate [Mass/volume] in Serum or Plasma [facility] Work Phone: Comment on above: Expected: 11/30/2022 , Expires: 01/30/2023 Start: 06-07-2022 DEPRESSION ASSESSMENT DEPRESSION ASS [facility] Start: 02-05-2022 Influenza vaccination INFLUENZA (#1) [facility] Start: 07-23-2021 COVID-19 VACCINE (4 - Booster for Moderna series) COVID-19 VACCINE (4 - Booster for Moderna series) [facility] Start: 06-07-2021 [facility] Start: 2021 Pneumococcal Vaccine : 50+ (1 of 1 - PCV) Pneumococcal Vaccine: 50+ (1 of 1 - PCV) [facility] Start: 2021 SHINGRIX VACCINE (1 of 2) SHINGRIX VACCINE (1 of 2) [facility] Start: 02-14-2016 COLOGUARD (FIT-DNA) COLOGUARD (FIT-D NA) [facility] Start: 02-14-2016 Colonoscopy COLONOSCOPY [facility] Start: 02-14-2016 COLORECTAL CANCER SCREENING COLORECTAL CANCER SCREENING [facility] Start: 02-14-[address] COLONOGRAPHY [facility] Start: 02-14-2016 DIABETES SCREEN DIABETES SCREEN [facility] Start: 02-14-2016 FECAL OCCULT BLOOD FECAL OCCULT BLOO D [facility] Start: 02-14-2016 Screening for malign ant neoplasm of colon [facility] Start: 02-14-2016 SIGMOIDOSCOPY SIGMOIDOSCOPY [facility] Start: 2006 Lipid panel Lipid Screening [facility] Start: 2006 LIPID SCREEN LIPID SCREEN [facility] Start: 1990 Hepatitis B Vaccine (1 of 3 - 19+ 3-dose series) Hepatitis B Vaccine (1 of 3 - 19+ 3-dose series) [facility] Start: 1990 Urine microalbumin profile DTAP,TDAP,TD (1 - Tdap) [facility] Start: 1989 Anxiety Screening Anxiety Screening [facility] Start: 1989 Depression Screening Depression Scre [facility] Start: 1989 HEPATITIS C SCREENING HEPATITIS C [facility] Start: 1989 Hepatitis C screening Hepatitis C [facility] Start: 1989 HIV SCREENING HIV SCREENING [facility] Start: 1989 HIV screening HIV Screening [facility] Start: 1971 HEPATITIS B (1 of 3 - 3-dose series) HEPATITIS B (1 of 3 - 3-dose series) [facility] Start: 1971 Hepatitis B Vaccine (1 of 3 - 3-dose series) Hepatitis B Vaccine (1 of 3 - 3-dose series) [facility] COVID & INFLUENZA A/ B & RSV NAAT, ROUTINE COVID & INFLUENZA A/B & RSV NAAT, ROUTINE Microbiology Routine URI with cough and congestion Ordered: 06/13/2023 [facility] Work Phone: Comment on above: Ordered: 06/13/2023 COVID & INFLUENZA A/ B & RSV PCR, ROUTINE COVID & INFLUENZA A/B & RSV PCR, ROUTINE Microbiology Routine URI with cough and congestion Ordered: 06/10/2024 [facility] Work Phone: Comment on above: Ordered: 06/10/2024 End: 04-06-2023 XR DIGIT GENERAL 3V FRONTAL/LAT/OBL LEFT XR DIGIT GENERAL 3V FRONTAL/LAT/OBL LEFT Radiology Routine Injury of left thumb, initial encounter 1 Occurrences starting 03/07/2022 until 04/06/2023 [facility] Work Phone: Comment on above: 1 Occurrences starti ng 03/07/2022 until 04/06/2023 Immunizations Immunization Date Immunization Notes Care Provider Denise lux 03-31-2023 influenza virus vaccine, unspecified formulation Xr [place] Work Phone: [facility] 10-28-2017 tetanus toxoid, redu ranjit diphtheria toxoid, and acellular pertussis vaccine, adsorbed [facility] 04-01-2005 influenza virus vaccine, whole virus Becky Victor APRN.CNP Work Phone: [facility] Work Phone: Payers Date Payer Category Payer Self-pay 2022 Unknown [id number] 2022 Unknown [id number] 1971 Unknown [id number]. 1971 Unknown [id number] [id number]. 1971 Unknown [id number] [id number]. 1971 Unknown [id number]. 1971 Unknown [id number]. 1971 Unknown [id number] [id number]. 1971 Unknown [id number] [id number]. 1971 Unknown [id number] [id number]. Unknown [facility] [id number] Unknown [facility] . [id number] Unknown [employer] COMP MANAGEMENT [id number] Unknown [id number] Unknown [id number] Unknown 2002 [id number] Worker's Compensation Social History Date Type Detail Facility [facility]: [facility] Start: 03-07-2022 Tobacco use and exposure Smokeless tobacco non-user [facility] Start: 03-07-2022 End: 06-10-2024 Alcohol intake Current non-drinker of alcohol (finding) [facility] Start: 1970 Sex Assigned At Male C [facility] Start: 02-25-2022 End: 03-07-2022 Exposure to SARS-CoV-2 (event) Not sure [facility] Work Phone: Start: 10-28-2017 End: 10-28-2017 Tobacco smoking status NHIS Unknown if ever smoked [facility] Start: 06-13-2023 End: 06-10-2024 History of Social function [facility] Start: 06-13-2023 End: 06-10-2024 Tobacco use panel [facility] Start: 03-23-2019 Gender identity Identifies as male gender (finding) [facility] Clinical Notes 03-07-2022 to 06-11-2024 Telephone Encounter - Becky Victor APRN.CNP - 06/11/2024 9:51 AM ESTTelephone Encounter - Becky Victor APRN.CNP - 06/11/2024 9:51 AM ESTPatient InstructionsPatient Instructions Note Date & Type Note Facility 06-11-2024 Telephone encount er Note Patient identified by name and date of . Paxlovid sent to pharmacy. Last eGFR was 90 (12/13/2022)- patient states no new health concerns or kidney function issues since then. Becky Victor APRN.CNP [facility] 06-11-2024 Miscellaneous Notes Formattin g of this note might be different from the original. Patient identified by name and date of . Paxlovid sent to pharmacy. Last eGFR was 90 (12/13/2022)- patient states no new health concerns or kidney function issues since then. Becky Victor APRN.CNP NOC took phone call and patient requesting paxlovid, NOC closed phone encounter before routing message to pool. Sagrario Freire MA I attempted to reach patient to advise of positive COVID test result. No answer, left message. If patient returns call, May be advised of positive test result and The CDC recommends that people refrain from work and isolate themselves until the following criteria are met: At least 24 hours have passed since last fever without the use of fever-reducing medications Other symptoms have improved If he is interested in treatment with Paxlovid this can be sent to his pharmacy. Becky Victor APRN.CNP documented in this encounter [facility] 06-11-2024 Note Addended by: BECKY BROWNLEE on: 06/11/2024 09:50 AM Modules accepted: Orders [facility] 06-11-2024 Miscellaneous Notes Addended by: BECKY VICTOR on: 06/11/2024 09:50 AM Modules accepted: Orders Reason for Call: Patient calling with return call/Message from office: Message from office reviewed - see Telephone encounter dated today 06/11/24 from Becky Victor APRN.CNP. Patient verbalized understanding of message given. Patient denies any new or worsening symptoms of which a provider is not aware:Yes Patient given positive Covid test results Patient desires treatment with Paxlovid. Patient has no known allergies Verified pharmacy as [facility] in [place] at [phone] Outcome: Chart routed to [facility] [facility]. Advised patient to call back if he does not hear from [facility] within 2 hours. documented in this encounter [facility] 06-11-2024 Telephone encount er Note NOC took phone call and patient requesting paxlovid, NOC closed phone encounter before routing message to [facility]. Sagrario Freire MA [facility] 06-11-2024 Telephone encount er Note Reason for Call: Patient calling with return call/Message from office: Message from office reviewed - see Telephone encounter dated today 06/11/24 from Becky Victor APRN.CNP. Patient verbalized understanding of message given. Patient denies any new or worsening symptoms of which a provider is not aware:Yes Patient given positive Covid test results Patient desires treatment with Paxlovid. Patient has no known allergies Verified pharmacy as [facility] in [place] at [phone] Outcome: Chart routed to [facility] [facility]. Advised patient to call back if he does not hear from [facility] within 2 hours. [facility] 06-11-2024 Telephone encount er Note I attempted to reach patient to advise of positive COVID test result. No answer, left message. If patient returns call, May be advised of positive test result and The CDC recommends that people refrain from work and isolate themselves until the following criteria are met: At least 24 hours have passed since last fever without the use of fever-reducing medications Other symptoms have improved If he is interested in treatment with Paxlovid this can be sent to his pharmacy. Becky Victor APRN.CNP [facility] 06-10-2024 Instructions Fiona Lomas APRN.CNP - 06/10/2024 11:15 AM EST Strep is negative covid flu and influenza test ordered You will be notified in 12-24 hours, results available on MyChart Rest, increase water intake Motrin or Tylenol as needed for fever or pain. Salt water gargles, chloraseptic spray or lozenges as needed for sore throat. Warm beverages, honey. Nasal saline spray as needed Cool mist humidifier at night Tylenol (generic acetaminophen) 500 mg-2 tabs every 8 hrs. as needed for fever and aches Ibuprofen 600 mg (3-200mg tablets) every 6 hours -Mucinex (generic is fine) Guaifenesin 1200 mg twice daily to help with cough and to thin out mucus Albuterol inhaler - 2 puffs every 4-6 hours Tessalon Perles 2 every 8 hours, do not combine this with robitussin or delsym * Prednisone 40 mg (2 tablets) per day for 5 days, take in morning or early in day * Do not NSAIDs during this 5 day course (ibuprofen, naproxen, Motrin, Aleve, Advil) Tylenol only during prednisone use * Follow up with primary care provider if no improvement with treatment * Seek medical care immediately, call 911, go to ER if you have chest pain, difficulty breathing, shortness of breath, inability to swallow. documented in this encounter [facility] 06-10-2024 Note HNO ID: [id number] Author: FIONA LOMAS APRN.KEVIN Service: ? Author Type: Nurse Practitioner Type: Progress Notes Filed: 06/10/2024 11:16 Note Text: Subjective The history is provided by the patient. No project associate was used. HPI Anabel Blancas is a 54 year old male who presents today for CC of cough, congestion, sinus pressure, for one day. He is also having sore throat, and body aches He has used no medications or treatment. No known exposure to covid, flu or rsv. Desires testing BP 122/82 Pulse 97 Temp 37.2 ?C (99 ?F) (Tympanic) Resp 16 Wt 103.4 kg (227 lb 15.3 oz) SpO2 95% Social History Tobacco Use Smoking status: Never Smokeless tobacco: Never Substance Use Topics Alcohol use: No Drug use: No History reviewed. No pertinent past medical history. I have confirmed and edited as necessary, the [facility] Review of Systems Constitutional: Negative for chills, fever and malaise/fatigue. HENT: Positive for congestion and sinus pain. Negative for ear pain and sore throat. Respiratory: Positive for cough. Negative for sputum production, shortness of breath and wheezing. Cardiovascular: Negative for chest pain. Gastrointestinal: Negative for abdominal pain, diarrhea, nausea and vomiting. Musculoskeletal: Negative for myalgias. Neurological: Negative for headaches. Objective Physical Exam Vitals and nursing note reviewed. Constitutional: Appearance: He is not toxic-appearing. HENT: Head: Normocephalic and atraumatic. Right Ear: Tympanic membrane, ear canal and external ear normal. Left Ear: Tympanic membrane, ear canal and external ear normal. Nose: Mucosal edema, congestion and rhinorrhea present. Right Sinus: Maxillary sinus tenderness and frontal sinus tenderness present. Left Sinus: Maxillary sinus tenderness and frontal sinus tenderness present. Mouth/Throat: Pharynx: Uvula midline. Posterior oropharyngeal erythema and postnasal drip present. No oropharyngeal exudate. Tonsils: No tonsillar abscesses. Cardiovascular: Rate and Rhythm: Normal rate and regular rhythm. Heart sounds: Normal heart sounds. Pulmonary: Effort: Pulmonary effort is normal. Breath sounds: Normal breath sounds. No decreased breath sounds, wheezing, rhonchi or rales. Lymphadenopathy: Head: Right side of head: No submental, submandibular, tonsillar or preauricular adenopathy. Left side of head: No submental, submandibular, tonsillar or preauricular adenopathy. Cervical: No cervical adenopathy. Right cervical: No superficial cervical adenopathy. Left cervical: No superficial cervical adenopathy. Neurological: Mental Status: He is alert. ASSESSMENT/PLAN: 1. Sore throat - ICD9: 462, ICD10: J02.9 (primary diagnosis) - suspect viral - Group A strep molecular testing negative - STREP A MOLECULAR (POC) 2. URI with cough and congestion - ICD9: 465.9, ICD10: J06.9 - Discussed viral etiology and rationale for treatment. - Symptomatic treatment with prn analgesia - Supportive care with fluids and rest - The patient may also use mucinex, tessalon perls, albuterol inhaler Prednisone 40 mg (2-20mg tablets) po QD for 5 days. - - COVID AND INFLUENZA A/B AND RSV PCR, ROUTINE Diagnosis and treatment plan were discussed and questions were answered to the patient's satisfaction. Pt acknowledged understanding of concepts and follow up plan. Specific signs and symptoms that would indicate the need for higher level of care were discussed in detail warranting prompt ER evaluation. Fiona Lomas APRN.[facility] 06-10-2024 History of Presen t illness Narrative Subjective The history is provided by the patient. No project associate was used. HPI Anabel Blancas is a 54 year old male who presents today for CC of cough, congestion, sinus pressure, for one day. He is also having sore throat, and body aches He has used no medications or treatment. No known exposure to covid, flu or rsv. Desires testing BP 122/82 Pulse 97 Temp 37.2 C (99 F) (Tympanic) Resp 16 Wt 103.4 kg (227 lb 15.3 oz) SpO2 95% Social History Tobacco Use Smoking status: Never Smokeless tobacco: Never Substance Use Topics Alcohol use: No Drug use: No History reviewed. No pertinent past medical history. I have confirmed and edited as necessary, the [facility] Review of Systems Constitutional: Negative for chills, fever and malaise/fatigue. HENT: Positive for congestion and sinus pain. Negative for ear pain and sore throat. Respiratory: Positive for cough. Negative for sputum production, shortness of breath and wheezing. Cardiovascular: Negative for chest pain. Gastrointestinal: Negative for abdominal pain, diarrhea, nausea and vomiting. Musculoskeletal: Negative for myalgias. Neurological: Negative for headaches. Objective Physical Exam Vitals and nursing note reviewed. Constitutional: Appearance: He is not toxic-appearing. HENT: Head: Normocephalic and atraumatic. Right Ear: Tympanic membrane, ear canal and external ear normal. Left Ear: Tympanic membrane, ear canal and external ear normal. Nose: Mucosal edema, congestion and rhinorrhea present. Right Sinus: Maxillary sinus tenderness and frontal sinus tenderness present. Left Sinus: Maxillary sinus tenderness and frontal sinus tenderness present. Mouth/Throat: Pharynx: Uvula midline. Posterior oropharyngeal erythema and postnasal drip present. No oropharyngeal exudate. Tonsils: No tonsillar abscesses. Cardiovascular: Rate and Rhythm: Normal rate and regular rhythm. Heart sounds: Normal heart sounds. Pulmonary: Effort: Pulmonary effort is normal. Breath sounds: Normal breath sounds. No decreased breath sounds, wheezing, rhonchi or rales. Lymphadenopathy: Head: Right side of head: No submental, submandibular, tonsillar or preauricular adenopathy. Left side of head: No submental, submandibular, tonsillar or preauricular adenopathy. Cervical: No cervical adenopathy. Right cervical: No superficial cervical adenopathy. Left cervical: No superficial cervical adenopathy. Neurological: Mental Status: He is alert. ASSESSMENT/PLAN: 1. Sore throat - ICD9: 462, ICD10: J02.9 (primary diagnosis) - suspect viral - Group A strep molecular testing negative - STREP A MOLECULAR (POC) 2. URI with cough and congestion - ICD9: 465.9, ICD10: J06.9 - Discussed viral etiology and rationale for treatment. - Symptomatic treatment with prn analgesia - Supportive care with fluids and rest - The patient may also use mucinex, tessalon perls, albuterol inhaler Prednisone 40 mg (2-20mg tablets) po QD for 5 days. - - COVID & INFLUENZA A/B & RSV PCR, ROUTINE Diagnosis and treatment plan were discussed and questions were answered to the patient's satisfaction. Pt acknowledged understanding of concepts and follow up plan. Specific signs and symptoms that would indicate the need for higher level of care were discussed in detail warranting prompt ER evaluation. Fiona Lomas APRN.[employer] documented in this encounter [facility] 06-13-2023 Instructions Yaneli Wolfe PA-C - 06/13/2023 12:09 PM EST Fever- To help treat a fever: Drink plenty of fluids and stay well hydrated. Eat small amounts of easy to digest food. Rest. Your body needs rest to recover, but getting up and moving around the house frequently is a good idea. You should try to continue doing your normal daily activities (bathing, toileting, grooming, cooking), though you will probably feel tired, and need to rest often. Avoid any heavy activity or exercise, as this will increase your body temperature. Dress in light clothing and stay covered in a light sheet. Keep the room temperature cool. Take a slightly warm (not cold or cool) bath, or apply damp washcloths to the forehead and wrists. Cough- To help treat a cough: Stay well hydrated. Try warm water or tea with lemon and/or honey to help soothe the cough. Use a humidifier to add moisture to the air. Try a product with menthol, like a cough drop or a rub for your chest such as Vicks, which can help reduce cough. Try cough drops. Avoid smoking and other strong odors or perfumes. Try breathing exercises to keep your lungs open and clear. Take a big deep breath through your nose and hold for 5 seconds before slowly releasing. Repeat frequently, while you are awake. Congestion- Treatment can help relieve symptoms: Try OTC nasal saline spray, or nasal saline rinse to relieve mucus congestion. Nasal strips can help keep nasal passages open, to increase airflow. Elevating your head with an extra pillow in bed can help reduce congestion. Using a humidifier can increase moisture in the air, and make breathing easier. Sore Throat- can be managed at home by: Stay well hydrated. Gargle with salt water - mix teaspoon salt with 1 cup of warm water and gargle. This helps to loosen mucus in the back of the throat and may reduce discomfort. Try ice chips, popsicles or lozenges to soothe the throat. Nausea/Vomiting/Diarrhea- These are common symptoms, and staying hydrated is most important. If you are nauseous or vomiting, start with small sips of water every 10-15 minutes and increase as tolerated. You can try sucking an ice cube too. If tolerating, you can try pedialyte or Gatorade, or flat sprite or herson-juliette. Start slowly and increase as you are able to. Instead of meals, try smaller, more frequent snacks. Try eating bland foods like crackers, toast, rice, and applesauce. Avoid spicy, greasy or fried foods and dairy containing foods. Even if you aren't feeling hungry due to lack of smell or taste, it is important to try to take in some food when you are able. After drinking and eating, rest in an upright position for up to two hours as needed to help decrease nauseous feelings. Try closing your eyes, avoid moving and watching TV. Avoid strong odors that can make you feel more nauseated. When to seek emergency medical attention Look for emergency warning signs for COVID-19. If having any of these symptoms, seek emergency medical care immediately: Trouble breathing Persistent pain or pressure in the chest New confusion Inability to wake or stay awake Bluish lips or face *This list is not all possible symptoms. Please call your medical provider for any other symptoms that are severe or concerning to you. documented in this encounter [facility] 06-13-2023 History of Presen t illness Narrative SUBJECTIVE Anabel Blancas is a 53 year old male who presents with 3 days of symptoms that are stable. Symptoms include: Fever (?100.4F): Yes or Chills: No Cough: Yes Fatigue: Yes Muscle aches: Yes Headache: Yes Sore throat: Yes Nasal congestion: Yes = No past medical history on file. No past surgical history on file. ALLERGIES Patient has no known allergies. MEDICATIONS FLUoxetine (PROZAC) 20 mg capsule zolpidem (AMBIEN) 10 mg Take 10 mg by mouth at bedtime as needed. albuterol HFA (PROVENTIL HFA, VENTOLIN HFA) 90 mcg/actuation inhaler Inhale 2 Puffs as instructed every 4 hours as needed for wheezing/shortness of breath. Inhalational Spacing Device 1 Device one time only for 1 dose. sertraline (ZOLOFT) 50 mg tablet Take 1 tablet by mouth once daily. (Patient not taking: Reported on 03/07/2022) oxyCODONE-acetaminophen 5-325 mg ORAL tablet Take 1-2 tablets by mouth every 6 hours as needed. (Patient not taking: Reported on 03/07/2022) FAMILY HISTORY Problem Relation Age of Onset None Mother other (blood poisoning [Other]) Father Social History Tobacco Use Smoking status: Never Smokeless tobacco: Never Substance Use Topics Alcohol use: No Drug use: No OBJECTIVE BP 123/84 Pulse 72 Temp 36.2 C (97.2 F) Resp 18 Wt 103 kg (227 lb) SpO2 98% GENERAL: well appearing, alert, in no acute distress HEENT: no conjunctival injection, pupils equal, moist mucous membranes, oropharynx clear without erythema, and no cervical lymphadenopathy. TMs clear bilaterally PULMONARY: breathing comfortably on room air , no coughing noted, no wheezing noted, and lungs CTA bilaterally Heart: RRR Results for orders placed or performed in visit on 06/13/23 STREP A MOLECULAR (POC) Specimen: THROAT SWAB Result Value Ref Range Strep A (POCT) Negative Negative Procedural Control Valid ASSESSMENT/PLAN ASSESSMENT/PLAN: 1. Sore throat - ICD9: 462, ICD10: J02.9 (primary diagnosis) - suspect viral - Group A strep molecular testing negative - Discussed supportive care treatment with fluids, rest and analgesia. - Call back if drooling, increased temperature, symptoms of dehydration and/or still sick in one week - STREP A MOLECULAR (POC) 2. URI with cough and congestion - ICD9: 465.9, ICD10: J06.9 - Discussed viral etiology and rationale for treatment. - Symptomatic treatment with prn analgesia - Supportive care with fluids and rest - tessalon perles for cough and proventil inhaler Q 4-6 hours PRN - COVID & INFLUENZA A/B & RSV NAAT, ROUTINE Yaneli Wolfe PA-C documented in this encounter [facility] 12-01-2022 Miscellaneous Notes Formattin g of this note might be different from the original. Patient given results and verbalized understanding of instructions given. Sagrario Freire Please notify that uric acid normal. Continue with plan as discussed during visit. documented in this encounter [facility] 11-30-2022 History of Presen t illness Narrative Images from the original note were not included. Subjective HPI HPI Anabel Blancas is a 52 year old male who presents today for CC of right great toe pain. This started 1 day ago. Has tried nothing for relief. Symptoms are worsened by walking. Risk factors no injury or hx of this in past. Denies dx of gout. .Patient presents with: Pain (foot): R foot big toe radiating to arch x1 day No past medical history on file. No past surgical history on file. ALLERGIES Patient has no known allergies. MEDICATIONS FLUoxetine (PROZAC) 20 mg capsule zolpidem (AMBIEN) 10 mg Take 10 mg by mouth at bedtime as needed. sertraline (ZOLOFT) 50 mg tablet Take 1 tablet by mouth once daily. (Patient not taking: Reported on 03/07/2022) oxyCODONE-acetaminophen 5-325 mg ORAL tablet Take 1-2 tablets by mouth every 6 hours as needed. (Patient not taking: Reported on 03/07/2022) FAMILY HISTORY Problem Relation Age of Onset None Mother other (blood poisoning [Other]) Father Social History Tobacco Use Smoking status: Never Smokeless tobacco: Never Substance Use Topics Alcohol use: No Drug use: No ROS Objective Blood pressure 130/86, pulse 70, temperature 36.2 C (97.1 F), resp. rate 18, weight 103.1 kg (227 lb 3.2 oz), SpO2 98 %. Physical Exam Constitutional: General: He is not in acute distress. Appearance: He is not toxic-appearing or diaphoretic. HENT: Head: Normocephalic and atraumatic. Cardiovascular: Pulses: Dorsalis pedis pulses are 2+ on the right side. Posterior tibial pulses are 2+ on the right side. Pulmonary: Effort: Pulmonary effort is normal. No accessory muscle usage or respiratory distress. Musculoskeletal: Feet: Neurological: Mental Status: He is alert and oriented to person, place, and time. ASSESSMENT/PLAN: 1. Great toe pain, right - ICD9: 729.5, ICD10: M79.674 -no bony abnormality noted on xray -overuse injury vs gout See granulating blender if s/s persist -Rest, Ice, Compression, Elevation discussed -follow up with primary care if symptoms persist/worsen in 10-14 days - XR TOE AP/LAT/OBL RIGHT IMPRESSION: No radiographic evidence of acute osseous abnormality Dictated by : CHARLIE LOIUSE MD - PREDNISONE 10 MG TABLET - URIC ACID BLOOD No problem-specific Assessment & Plan notes found for this encounter. documented in this encounter [facility] 11-30-2022 History of Presen t illness Narrative Radiology Service Progress Note PATIENT NAME: Anabel Blancas DATE OF SERVICE: November 30, 2022 TIME: 3:35 PM PATIENT IDENTITY VERIFICATION COMPLETED USING TWO (2) IDENTIFIERS: Name and Date of confirmed by patient verbally. FALL SCREENING: Has the patient had 2 falls in the last year or 1 fall with injury or currently using an Ambulatory Assistive Device (Walker, Cane, Wheelchair, Crutches, etc.)? No PATIENT GENDER DATA: Male PATIENT RELEVANT IMPLANT DATA REVIEWED: Yes RADIOLOGY DEPARTMENT: General X-ray: Exam(s) Completed: Lower Extremity X-Ray(s): Toes, Right great PERIPHERAL IV DATA: Not applicable SIGNED BY: RT Nohemy(R) November 30, 2022 3:35 PM documented in this encounter [facility] 03-07-2022 History of Presen t illness Narrative Images from the original note were not included. Subjective HPI Anabel Blancas is a 52 year old male who presents with left thumb injury. He was smashing a rock with a sledge hammer when he hit his thumb. He has blood under the thumb nail. He has full range of motion to the thumb. 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 He has not used any treatments or medication at home. Review of Systems Constitutional: Negative for chills and fever. Musculoskeletal: Positive for joint pain. Negative for falls. Skin: Negative for itching and rash. BP 130/80 Pulse 81 Temp 36.1 C (96.9 F) Resp 18 Wt 95 kg (209 lb 6.4 oz) SpO2 98% No past medical history on file. No past surgical history on file. ALLERGIES Patient has no known allergies. MEDICATIONS FLUoxetine (PROZAC) 20 mg capsule zolpidem (AMBIEN) 10 mg Take 10 mg by mouth at bedtime as needed. cephALEXin (KEFLEX) 500 mg capsule Take 1 capsule by mouth three times daily for 5 days. sertraline (ZOLOFT) 50 mg tablet Take 1 tablet by mouth once daily. (Patient not taking: Reported on 03/07/2022) predniSONE 20 mg ORAL tablet Take 1 tablet by mouth twice daily. (Patient not taking: Reported on 03/07/2022) oxyCODONE-acetaminophen 5-325 mg ORAL tablet Take 1-2 tablets by mouth every 6 hours as needed. (Patient not taking: Reported on 03/07/2022) ibuprofen 600 mg ORAL tablet Take 1 tablet by mouth every 6 hours as needed. FOR PAIN. (Patient not taking: Reported on 03/07/2022) FAMILY HISTORY Problem Relation Age of Onset None Mother other (blood poisoning [Other]) Father Social History Tobacco Use Smoking status: Never Smokeless tobacco: Never Substance Use Topics Alcohol use: No Drug use: No Objective Physical Exam Vitals and nursing note reviewed. Constitutional: Appearance: Normal appearance. Musculoskeletal: Hands: Skin: General: Skin is warm and dry. Capillary Refill: Capillary refill takes less than 2 seconds. Findings: Bruising present. No erythema or rash. Neurological: Mental Status: He is alert. ASSESSMENT/PLAN: 1. Injury of left thumb, initial encounter - ICD9: 959.5, ICD10: S69.92XA - CEPHALEXIN 500 MG CAPSULE - XR DIGIT GENERAL 3V FRONTAL/LAT/OBL LEFT- to be completed Wednesday when xray is open. - splint applied to left thumb. Wear splint for one week. Keep splint clean and dry. Apply ice to area twice daily. 2. Subungual hematoma of finger of left hand, initial encounter - ICD9: 923.3, ICD10: S60.10XA - relieved with trephination using an 18 ga needle. Moderate amount of blood expressed from under nailbed. Becky Victor APRN.KEVIN documented in this encounter [facility] 03-07-2022 Instructions Becky Victor APRN.KEVIN - 03/07/2022 2:35 PM EDT ASSESSMENT/PLAN: 1. Injury of left thumb, initial encounter - ICD9: 959.5, ICD10: S69.92XA - CEPHALEXIN 500 MG CAPSULE - XR DIGIT GENERAL 3V FRONTAL/LAT/OBL LEFT - splint applied to left thumb. Wear splint for one week. Keep splint clean and dry. Apply ice to area twice daily. 2. Subungual hematoma of finger of left hand, initial encounter - ICD9: 923.3, ICD10: S60.10XA - relieved with trephination using an 18 ga needle. Moderate amount of blood expressed from under nailbed. Becky Victor APRN.CNP documented in this encounter [facility] Evaluation note Diagnosis Injury of left thumb, initial encounter- Primary Subungual hematoma of finger of left hand, initial encounter [facility] noteNo assessment information availableWCommunity [facility] Work Phone: Evaluation note* Diagnosis Great toe pain, right- Primary documented in this encounter [facility] note* Diagnosis Sore throat- Primary Acute pharyngitis URI with cough and congestion documented in this encounter [facility] note* Diagnosis Sore throat- Primary Acute pharyngitis URI with cough and congestion documented in this encounter [facility] note* Diagnosis COVID-19- Primary documented in this encounter [facility] for referral (narrative)* Diagnostic Procedure Only (Routine) - Pending Review Specialty Diagnoses / Procedures Referred By Finaac t Referred To Contact XR IMAGING Diagnoses Injury of left thumb, initial encounter Procedures XR DIGIT GENERAL 3V FRONTAL/LAT/OBL LEFT RADEX FINGR MINIMUM 2 VIEWS Becky Victor APRN.CNP [address] [place] [address] Xr Imaging Referral ID Status Reason Start Date Expiration Date Visits Requested Visits Authorized [id number] Pending Review Auto-Generat ed Referral 03/07/2022 04/06/2023 1 1 [facility] for referral (narrative)* Diagnostic Procedure Only (Urgent) - Closed Specialty Diagnoses / Procedures Referred By Contac t Referred To Contact XR IMAGING Diagnoses Great toe pain, right Procedures XR TOE AP/LAT/OBL RIGHT RADEX TOE MINIMUM 2 VIEWS Klaus Talley APRN.SANITARY PLUMBER [address] [place] [address] Xr Imaging Referral ID Status Reason Start Date Expiration Date V isits Requested Visits Authorized [id number] Closed Auto-Generate d Referral 11/30/2022 12/30/2023 1 1 [facility] Diagnostic Procedure Only (Urgent) - Closed Specialty Diagnoses / Procedures Referred By Contac t Referred To Contact XR IMAGING Diagnoses Great toe pain, right Procedures XR TOE AP/LAT/OBL RIGHT RADEX TOE MINIMUM 2 VIEWS Klaus Talley APRN.SANITARY PLUMBER [address] [place] [address] [place] [address] Referral ID Status Reason Start Date Expiration Date V isits Requested Visits Authorized [id number] Closed Auto-Generate d Referral 11/30/2022 12/30/2023 1 1 [facility] Summary Purpose Family History No Family History Records Found Relationship Condition Age at Onset Recorded Date/T juan father Hemorrhagic disorder Unknown mother Diabetes mellitus Unknown Hypertension Unknown sister Diabetes mellitus Unknown Advance Directives No Advanced Directives Records FoundDocuments on File Type Date Recorded Patient Application Chemist Expl anation Advance Directive(s) 05/02/2019 3:47 PM Advance Directive Response Recorded Date/ Time Living Will No October 28, 2017 3 :09pm Power of Reinstatement Clerk No October 28, 2017 3:09pm Documents on File Type Date Recorded Patient Application Chemist Expl anation Advance Directive(s) 05/02/2019 3:47 PM Advance Directive Response Recorded Date/ Time Living Will No October 28, 2017 4 :09pm Power of Reinstatement Clerk No October 28, 2017 4:09pm Chief Complaint and Reason for Visit Chief Complaint Pain in right ankle and joints of right foot Chief Complaint EORDER Cough Chief Complaint RT LEG PAIN, HX DVT Additional Source Comments (unrecognized sect ion and content) No Status Records FoundNo Status Records FoundNo Status Records Found INFORMATION SOURCE (unrecogn ized section and content) DATE CREATED AUTHOR 10/08/2018 [facility] [employer] [facility] DATE CREATED AUTHOR AUTHOR'S ORGANIZ ATION 01/19/2024 [facility] DATE CREATED AUTHOR AUTHOR'S ORGANROBERT ATION 06/17/2024 [facility] Source Comments (unrecognize d section and content) In the event this informatio n is protected by the Federal Confidentiality of Alcohol and Drug Abuse Patient Records regulations: The Federal rules restrict any use of the information to criminally investigate or prosecute any alcohol or drug abuse patient.[facility] the event this information is protected by the Federal Confidentiality of Alcohol and Drug Abuse Patient Records regulations: The Federal rules restrict any use of the information to criminally investigate or prosecute any alcohol or drug abuse patient.[facility] the event this information is protected by the Federal Confidentiality of Alcohol and Drug Abuse Patient Records regulations: The Federal rules restrict any use of the information to criminally investigate or prosecute any alcohol or drug abuse patient.[facility] the event this information is protected by the Federal Confidentiality of Alcohol and Drug Abuse Patient Records regulations: The Federal rules restrict any use of the information to criminally investigate or prosecute any alcohol or drug abuse patient.[facility] Center[facility] the event this information is protected by the Federal Confidentiality of Alcohol and Drug Abuse Patient Records regulations: The Federal rules restrict any use of the information to criminally investigate or prosecute any alcohol or drug abuse patient.[facility] Center[facility] the event this information is protected by the Federal Confidentiality of Alcohol and Drug Abuse Patient Records regulations: The Federal rules restrict any use of the information to criminally investigate or prosecute any alcohol or drug abuse patient.[facility] Center[facility] the event this information is protected by the Federal Confidentiality of Alcohol and Drug Abuse Patient Records regulations: The Federal rules restrict any use of the information to criminally investigate or prosecute any alcohol or drug abuse patient.[facility] Center[facility] the event this information is protected by the Federal Confidentiality of Alcohol and Drug Abuse Patient Records regulations: The Federal rules restrict any use of the information to criminally investigate or prosecute any alcohol or drug abuse patient.[facility] Reason for Visit (unrecogniz ed section and content) Reason Comments Finger Injury Hit L thumb with sle dgehammer x1.5 hours Reason Comments Pain (foot) R foot big toe radia ting to arch x1 day Reason Comments Results Reason Comments Cough Nasal and chest karri estion on R side, wheezing, SOB, yellow and green phlegm, headache and fever x 3 days Reason Comments Cough Cough, congestion, s inus x 1 day Reason Comments Clinical Update Care Teams (unrecognized sec tion and content) Legal Advisor Relationship Specialty Start Date End Date Rosa M Ocasio [address] [facility] [address] [place] [address] PCP - General 09/20/03 Team Status: Active Member Role Status Dates Dr. Rosa M Ocasio MD Family Provider Active Dr. Rosa M Ocasio MD Primary Care Provider Active Team Status: Inactive Member Role Status Dates Dr. Jj Scott DO Attending Provider Active Dr. Rosa M Ocasio MD Primary Care Provider Active Legal Advisor Relationship Specialty Start Date End Date Rosa M Ocasio [address] [facility] [address] [place], [place] [id number] PCP - General 09/20/03 Legal Advisor Relationship Specialty Start Date End Date Rosa M Ocasio [address] [facility] [address] [place] [address] PCP - General 09/20/03 Team Status: Inactive Member Role Status Dates Dr. Rosa M Ocasio MD Primary Care Prov ider, Attending Provider, Referring Provider Active Team Status: Inactive Member Role Status Dates Dr. Rosa M Ocasio MD Primary Care Provider Active Mallory Erickson MD Attending Provider, Referring Provide r Active Team Status: Active Member Role Status Dates Dr. Rosa M Ocasio MD Primary Care Provider Active Dr. Walter Bains MD Attending Provider Active Legal Advisor Relationship Specialty Start Date End Date Rosa M Ocasio [address] [place] [address] PCP - General 09/20/03 Legal Advisor Relationship Specialty Start Date End Date Rosa M Ocasio [address] [place] [address] PCP - General 09/20/03 Legal Advisor Relationship Specialty Start Date End Date Rosa M Ocasio [address] [place] [address] PCP - General 09/20/03 Legal Advisor Relationship Specialty Start Date End Date Rosa M Ocasio [address] [place] [address] PCP - General 09/20/03 Goals (unrecognized section and content) Goals may be documented in a n alternate sectionGoals may be documented in an alternate sectionGoals may be documented in an alternate sectionGoals may be documented in an alternate sectionGoals may be documented in an alternate section FOR RECORDS PERTAINING TO PATIENTS WHO ARE OR HAVE BEEN ENROLLED IN A CHEMICAL DEPENDENCY/SUBSTANCEABUSE PROGRAM, SOME INFORMATION MAY BE OMITTED. This clinical summary was aggregated from multiple sources. Caution should be exercised in using it in the provision of clinical care. This summary normalizes information from multiple sources, and as a consequence, information in this document may materially change the coding, format and clinical context of patient data. In addition, data may be omitted in some cases. CLINICAL DECISIONS SHOULD BE BASED ON THE PRIMARY CLINICAL RECORDS. [employer] [facility]. provides no warranty or guarantee of the accuracy or completeness of information in this document.
== END | disposition home or self-care (01) ==
LOC: MTLAB 09:35
PROVIDERS: PCP Family Medicine
DX: Z00.00 Encounter for general adult medical examination without abnormal findings (principal); Z12.5 Encounter for screening for malignant neoplasm of prostate
CPT/HCPCS: 36415; 80053; 80061; 84153; 85025; G0103